=== PATIENT | female | born 1965 | race Caucasian/White ===

== ENCOUNTER → 2018-07-08 | Outpatient (REF) ==
--- NOTE | 2018-07-09 01:32 | REP ---
Clinical: Pain and disability. Technique: AP, lateral, coned-down views of the lumbar spine. Findings: Three views of the lumbosacral spine demonstrate satisfactory alignment and lordosis without acute fracture / compression injury or subluxation. Mild multilevel degenerative changes include early marginal spurring with minimal endplate sclerosis and disc space narrowing. Impression: Mild multilevel spondylosis. No acute fracture / compression injury or subluxation. Electronically Signed by Curt Franks MD 07/09/2018 01:23 A
== END ==
LOC: M SMT 14:45
PROVIDERS: ATTEND Internal Medicine
DX: Z00.00 Encounter for general adult medical examination without abnormal findings (principal)